=== PATIENT | female | born 1995 | race Caucasian/White ===

== ENCOUNTER 2016-11-01 22:21 | Emergency (ER) | payer MEDICAID ==
[2016-11-01 22:29] VITALS: BP 121/79
[2016-11-01] MEDS ORDERED: Ondansetron 4 MG/2 ML SDV IVPUSH ONE (22:54)
[2016-11-01] MEDS ORDERED: Sodium Chloride 0.9% 500 ML IV ONE (22:54)
[2016-11-01] MEDS ORDERED: Sodium Chloride 0.9% 10 ML Syringe FLUSH PRN (22:54)
--- NOTE | 2016-11-01 23:04 | EDM.PDOC ---
ED HPI GENERAL MEDICAL PROBLEM - General Chief Complaint: Abdominal Pain Stated Complaint: right side pain Time Seen by Provider: 11/01/16 22:43 Source of Information: Reports: Patient, Family, RN Notes Reviewed (Mother) - History of Present Illness INITIAL COMMENTS - FREE TEXT/NARRATIVE: 21-year-old female comes in with right-sided abdominal pain. This first started about 6 days ago. Pain has been primarily right upper quadrant but also right mid abdomen with some radiation toward the right flank. She felt that she was constipated initially She has worked with various meds for that. Did have an episode of diarrhea this past morning which she attributes to meds taken for constipation. There's been no repetitive watery diarrhea throughout the remainder of today. She has not had nausea or vomiting with this. She states she did eat pizza this last evening and that did make the pain worse. Pain does not over to the left abdomen. No fever or chills. No voiding symptomatology. She is taken to hydrocodone this evening about 1 and 3 hours ago so that is help the pain bringing that down from fairly severe to more mild at this time Right Abdomen Pain Score (Numeric/FACES): 3 - Related Data Allergies Allergy/AdvReac Type Severity Reaction Status Date / Time No Known Allergies Allergy Verified 09/08/15 13:03 Home Meds: Home Meds Levothyroxine 25 mcg PO DAILY 01/13/14 [History] Citalopram Hydrobromide [Celexa] 20 mg PO DAILY 11/01/16 [History] Past Medical History [employer] History: Reports: Psychiatric History: Reports: Anxiety, Depression Endocrine/Metabolic History: Reports: Hypothyroidism - Past Surgical History HEENT Surgical History: Reports: Oral Surgery Social & Family History - Tobacco Use Smoking Status *Q: Current Every Day Smoker Years of Tobacco use: 4 Packs/Tins Daily: 0.5 Used Tobacco, but Quit: No - Caffeine Use Caffeine Use: Reports: Energy Drinks, Soda - Recreational Drug Use Recreational Drug Use: No Drug Use in Last 12 Months: Yes Recreational Drug Type: Reports: Methamphetamine (Last use in summer) Recreational Drug Last Use: wednesday ED ROS GENERAL - Review of Systems Review Of Systems: See Below Constitutional: Denies: Fever, Chills, Diaphoresis HEENT: Reports: No Symptoms Respiratory: Denies: Shortness of Breath, Pleuritic Chest Pain Cardiovascular: Denies: Chest Pain GI/Abdominal: Reports: Abdominal Pain, Constipation, Diarrhea. Denies: Nausea, Vomiting : Reports: No Symptoms Musculoskeletal: Reports: Other (Area pain and swelling left antecubital area of forearm, swelling was worse but area of swelling and redness persists). Denies: Back Pain Skin: Reports: No Symptoms Neurological: Reports: No Symptoms ED EXAM, GI/ABD - Physical Exam Exam: See Below General Appearance: Alert, No Apparent Distress Throat/Mouth: Normal Inspection, Normal Oropharynx Head: No: Facial Swelling Neck: Supple, Full Range of Motion Respiratory/Chest: No Respiratory Distress, Lungs Clear, Normal Breath Sounds Cardiovascular: Regular Rate, Rhythm GI/Abdominal Exam: Tender (Right upper abdomen, more tender right mid abdomen and slightly toward the right flank, mild tenderness right lower abdomen, left abdomen completely soft and nontender). No: Guarding, Rebound (Female) Exam: Normal External Exam, Adnexal Tenderness (Right greater than left), Vaginal Discharge (Small amount of grayish white) Back Exam: CVA Tenderness (R) Extremities: Redness (Small area of redness, moderate area of tenderness with palpable swelling left antecubital area of left forearm) Neurological: Alert, Oriented, No Motor/Sensory Deficits ED I&D PROCEDURES - I&D Site: antecubital L forearm Skin prep: Providone-Iodine (Betadine) Local anesthesia - Lidocaine (Xylocaine): 1% Plain Area Incised With: 11 Blade Drainage: Purulent, Large Amount Packed With: 1/2 in. Iodoform Sterile Dressinx4(s) Complications: No Course - Vital Signs Last Recorded V/S: Last Vital Signs Temp 96.7 F 11/01/16 22:28 Pulse 92 11/01/16 22:28 Resp 20 11/01/16 22:28 BP 121/79 11/01/16 22:28 Pulse Ox 99 11/01/16 22:28 - Orders/Labs/Meds Labs: Laboratory Tests 11/01/16 11/01/16 11/01/16 Range/Units 23:19 23:19 23:19 WBC 10.11 H (3.98-10.04) K/mm3 RBC 4.40 (3.98-5.22) M/mm3 Hgb 13.0 (11.2-15.7) gm/L Hct 38.7 (34.1-44.9) % MCV 88.0 (79.4-94.8) fl MCH 29.5 (25.6-32.2) pg MCHC 33.6 (32.2-35.5) g/dl RDW Std Deviation 40.6 (36.4-46.3) fL Plt Count 316 (182-369) K/mm3 MPV 10.3 (9.4-12.3) fl Neut % (Auto) 81.2 H (34.0-71.1) % Lymph % (Auto) 8.7 L (19.3-51.7) % [place] % (Auto) 8.3 (4.7-12.5) % Eos % (Auto) 1.3 (0.7-5.8) Baso % (Auto) 0.2 (0.1-1.2) % Neut # (Auto) 8.21 H (1.56-6.13) K/mm3 Lymph # (Auto) 0.88 L (1.18-3.74) K/mm3 [place] # (Auto) 0.84 H (0.24-0.36) K/mm3 Eos # (Auto) 0.13 (0.04-0.36) K/mm3 Baso # (Auto) 0.02 (0.01-0.08) K/mm3 Manual Slide Review Normal smear Sodium 136 (136-145) mEq/L Potassium 3.6 (3.5-5.1) mEq/L Chloride 99 (98-107) mEq/L Carbon Dioxide 29 (21-32) mEq/L Anion Gap 11.6 (5-15) BUN 5 L (7-18) mg/dL Creatinine 0.8 (0.55-1.02) mg/dL Est Cr Clr Drug Dosing 124.33 mL/min Estimated GFR (MDRD) > 60 (>60) mL/min BUN/Creatinine Ratio 6.3 L (14-18) Glucose 110 H (74-106) mg/dL Calcium 8.9 (8.5-10.1) mg/dL Total Bilirubin 0.4 (0.2-1.0) mg/dL AST 21 (15-37) U/L ALT 52 (14-59) U/L Alkaline Phosphatase 112 (46-116) U/L C-Reactive Protein 20.5 H* (<1.0) mg/dL Total Protein 7.1 (6.4-8.2) g/dl Albumin 2.8 L (3.4-5.0) g/dl Globulin 4.3 gm/dL Albumin/Globulin Ratio 0.7 L (1-2) HCG, Qual (NEGATIVE) C trachomatis DNA (PCR) N gonorrhoeae DNA (PCR) 11/01/16 11/02/16 Range/Units 23:19 02:30 WBC (3.98-10.04) K/mm3 RBC (3.98-5.22) M/mm3 Hgb (11.2-15.7) gm/L Hct (34.1-44.9) % MCV (79.4-94.8) fl MCH (25.6-32.2) pg MCHC (32.2-35.5) g/dl RDW Std Deviation (36.4-46.3) fL Plt Count (182-369) K/mm3 MPV (9.4-12.3) fl Neut % (Auto) (34.0-71.1) % Lymph % (Auto) (19.3-51.7) % [place] % (Auto) (4.7-12.5) % Eos % (Auto) (0.7-5.8) Baso % (Auto) (0.1-1.2) % Neut # (Auto) (1.56-6.13) K/mm3 Lymph # (Auto) (1.18-3.74) K/mm3 [place] # (Auto) (0.24-0.36) K/mm3 Eos # (Auto) (0.04-0.36) K/mm3 Baso # (Auto) (0.01-0.08) K/mm3 Manual Slide Review Sodium (136-145) mEq/L Potassium (3.5-5.1) mEq/L Chloride (98-107) mEq/L Carbon Dioxide (21-32) mEq/L Anion Gap (5-15) BUN (7-18) mg/dL Creatinine (0.55-1.02) mg/dL Est Cr Clr Drug Dosing mL/min Estimated GFR (MDRD) (>60) mL/min BUN/Creatinine Ratio (14-18) Glucose (74-106) mg/dL Calcium (8.5-10.1) mg/dL Total Bilirubin (0.2-1.0) mg/dL AST (15-37) U/L ALT (14-59) U/L Alkaline Phosphatase (46-116) U/L C-Reactive Protein (<1.0) mg/dL Total Protein (6.4-8.2) g/dl Albumin (3.4-5.0) g/dl Globulin gm/dL Albumin/Globulin Ratio (1-2) HCG, Qual Negative (NEGATIVE) C trachomatis DNA (PCR) Detected H N gonorrhoeae DNA (PCR) Not detected Meds: Medications Discontinued Medications Generic Name Dose Route Start Last Admin Trade Name Freq PRN Reason Stop Dose Admin Ceftriaxone Sodium 250 mg 11/02/16 02:35 11/02/16 02:54 Rocephin IM 11/02/16 02:36 Not Given ONETIME ONE Diatrizoate Meglum/Diatrizoate Sod 90 ml 11/02/16 01:26 11/02/16 01:44 Gastrografin 37% PO 11/02/16 01:27 90 ml ONETIME ONE Administration Doxycycline Hyclate 100 mg 11/02/16 02:35 11/02/16 02:53 Vibramycin PO 11/02/16 02:36 100 mg ONETIME ONE Administration Hydromorphone HCl 0.5 mg 11/01/16 23:28 11/01/16 23:40 Dilaudid IVPUSH 11/01/16 23:29 0.5 mg ONETIME ONE Administration Hydromorphone HCl 0.5 mg 11/02/16 02:44 11/02/16 02:51 Dilaudid IVPUSH 11/02/16 02:45 0.5 mg ONETIME ONE Administration Sodium Chloride 500 mls @ 999 mls/hr 11/01/16 22:54 11/01/16 23:20 Normal Saline IV 11/01/16 23:24 999 mls/hr .BOLUS ONE Administration Ceftriaxone Sodium 0.25 gm/ 50 mls @ 100 mls/hr 11/02/16 02:43 11/02/16 03:00 Sodium Chloride IV 11/02/16 03:12 100 mls/hr ONETIME ONE Administration Iopamidol 125 ml 11/02/16 01:26 11/02/16 01:44 Isovue-300 (61%) IVPUSH 11/02/16 01:27 125 ml ONETIME ONE Administration Ketorolac Tromethamine 30 mg 11/01/16 23:30 11/01/16 23:42 Toradol IVPUSH 30 mg ONETIME SONY Administration Lidocaine HCl 50 ml 11/02/16 00:19 11/02/16 01:00 Xylocaine 1% INJECT 11/02/16 00:20 50 ml ONETIME ONE Administration Ondansetron HCl 4 mg 11/01/16 22:54 11/01/16 23:21 Zofran IVPUSH 11/01/16 22:55 4 mg ONETIME ONE Administration Sodium Chloride 10 ml 11/01/16 22:54 11/01/16 23:20 Saline Flush FLUSH 10 ml ASDIRECTED PRN Administration Keep Vein Open Sodium Chloride 10 ml 11/02/16 01:26 11/02/16 01:44 Saline Flush FLUSH 10 ml ONETIME PRN Administration IV FLUSH - Re-Assessments/Exams Free Text/Narrative Re-Assessment/Exam: 11/02/16 02:35. CT report comes back with no evidence for acute appendicitis. However there is stranding in the fatty tissue of the pelvis was some free fluid as well suggestive for PID, possible developing tubo-ovarian abscess. Patient denies being aware of pelvic discharge but there is some grayish white discharge visible on pelvic exam. Swab was taken for chlamydia/GC screen. She did have some tenderness of the right adnexa with question slight fullness as well. She has been given Rocephin 250 mg IV and also started on doxycycline 100 mg twice a day for 10 days. Discharge instructions as documented. Departure - Departure Time of Disposition: 02:44 Disposition: Home, Self-Care 01 Condition: Fair Clinical Impression: PID (acute pelvic inflammatory disease), Abscess - Discharge Information Instructions: Pelvic Inflammatory Disease, [id number] Referrals: PCP,None [Primary Care Provider] - Forms: ED Department Discharge Additional Instructions: Doxycycline 100 mg twice daily for 10 days, take until gone. Be careful to avoid excess sunlight when taking the doxycycline as that can cause photosensitivity reaction if exposed to a lot of sunlight. Follow-up clinic tomorrow to have packing removed and changed left forearm. Call [phone] for appointment. Tylenol for mild to moderate discomfort or hydrocodone if needed for more severe pain. Do not take Tylenol and hydrocodone at the same time. Do not drive or work when taking hydrocodone. Zofran if needed for nausea or vomiting. Return to ED if symptoms worsening in any way.
[2016-11-01] MEDS ORDERED: HYDROmorphone 0.5 MG/0.5 ML Syringe IVPUSH ONE (23:28)
[2016-11-01] MEDS ORDERED: Ketorolac 30 MG/ML SDV IVPUSH SCH (23:30)
[2016-11-02] MEDS ORDERED: Lidocaine 1% 50 ML MDV INJECT ONE (00:19)
[2016-11-02] MEDS ORDERED: Diatrizoate Meglumine/Diatrizoate Sodium 37% 120 ML Bottle PO ONE (01:26)
[2016-11-02] MEDS ORDERED: Iopamidol 612 MG/ML 150 ML Bottle IVPUSH ONE (01:26)
[2016-11-02] MEDS ORDERED: Sodium Chloride 0.9% 10 ML Syringe FLUSH PRN (01:26)
[2016-11-02] MEDS ORDERED: Doxycycline 100 MG Cap PO ONE (02:35)
[2016-11-02] MEDS ORDERED: cefTRIAXone 250 MG Vial IM ONE (02:35)
[2016-11-02] MEDS ORDERED: CEFTRIAXONE IV ONE (02:43)
[2016-11-02] MEDS ORDERED: SODIUM CHLORIDE 0.9% IV ONE (02:43)
[2016-11-02] MEDS ORDERED: HYDROmorphone 0.5 MG/0.5 ML Syringe IVPUSH ONE (02:44)
[2016-11-02 04:55] LABS: C. TRACHOMATIS BY PCR DETECTED; N. GONORRHOEAE BY PCR NOT DETECTED
--- NOTE | 2016-11-02 10:28 | CT ---
CT abdomen and pelvis Technique: Multiple axial sections were obtained from above the dome of the diaphragm inferiorly through the pubic symphysis. Intravenous and oral contrast was utilized. Delayed images were obtained through the pelvis. Comparison: No previous abdominal or pelvic imaging. Findings: Inflammatory change is seen within the pelvis. Cystic areas are seen within the pelvis. These findings are suspicious for an inflammatory process with abscess most likely representing tubo-ovarian abscess and pelvic inflammatory disease. Visualized lung bases are clear. Liver shows no focal parenchymal abnormality. Spleen appears within normal limits. Adrenal glands show no nodule. Pancreas is within normal limits. Gallbladder shows no calcified gallstones. Kidneys show symmetric contrast enhancement without hydronephrosis or mass. Aorta shows no aneurysmal dilatation. No retroperitoneal adenopathy or mesenteric abnormalities are seen. No additional pelvic abnormality is noted. Appendix is seen which appears within normal limits. Delayed images show contrast within the distal ureters and within the bladder. Impression: 1. Findings as described above suspicious for pelvic inflammatory change and tubo-ovarian abscess. 2. No additional abnormality is identified on CT study of the abdomen and pelvis. Diagnostic code #5 Agree with preliminary report issued by [employer] ([employer] preliminary report dictated on 11/02/16, 3:07 AM Central Time)
== END 2016-11-02 03:17 | disposition home or self-care (01) ==
LOC: JD.ED 22:21
DX: N73.0 Acute parametritis and pelvic cellulitis (principal); L02.414 Cutaneous abscess of left upper limb; F41.9 Anxiety disorder, unspecified; F32.9 Major depressive disorder, single episode, unspecified; E03.9 Hypothyroidism, unspecified; F17.210 Nicotine dependence, cigarettes, uncomplicated; Z98.890 Other specified postprocedural states; Z79.899 Other long term (current) drug therapy
CPT/HCPCS: 10061; 36415; 74177; 80053; 84703; 85025; 86140; 87491; 87591; 96361; 96374; 96375; 96376; 99284; A9270; J0696; J1170; J1885; J2405; J7040; J7050; Q9963; Q9967; 10060

== ENCOUNTER 2017-07-23 13:36 | Emergency (ER) | payer SELFPAY ==
[2017-07-23 13:57] VITALS: BP 106/86
--- NOTE | 2017-07-23 14:11 | EDM.PDOC ---
ED HPI GENERAL MEDICAL PROBLEM - General Chief Complaint: Upper Extremity Injury/Pain Stated Complaint: INFECTED RIGHT WRIST SENT FROM [facility] Time Seen by Provider: 07/23/17 14:11 Source of Information: Reports: Patient History Limitations: Reports: No Limitations - History of Present Illness INITIAL COMMENTS - FREE TEXT/NARRATIVE: Patient is a 22yo female presents ambulatory with a friend with concerns of infection to right wrist. This started on Wednesday of this week after a "relapse " and IV injection of meth into her right dorsal wrist. She is right handed so was attempting to do this with her left hand. She has pain with movements of the wrist but can move her fingers without pain. She has felt feverish and chilled today. No n/v/d, DUNCAN, back pain, CP, palpitations or abd pain. She has not attempted to inject since that time. She states the last relapse prior to this was 2 years ago. She may be interested in outpatient treatment. She has been to treatment before. Treatments SPRAGGER: Reports: Other (see below) Other Treatments SPRAGGER: [facility] Right Wrist Pain Score (Numeric/FACES): 5 - Related Data Allergies Allergy/AdvReac Type Severity Reaction Status Date / Time No Known Allergies Allergy Verified 07/23/17 13:47 Home Meds: Home Meds Levothyroxine 25 mcg PO DAILY 01/13/14 [History] Past Medical History [employer] History: Reports: Psychiatric History: Reports: Anxiety, Depression Endocrine/Metabolic History: Reports: Hypothyroidism - Past Surgical History HEENT Surgical History: Reports: Oral Surgery Social & Family History - Tobacco Use Smoking Status *Q: Current Every Day Smoker Years of Tobacco use: 4 Packs/Tins Daily: 0.5 Used Tobacco, but Quit: No - Caffeine Use Caffeine Use: Reports: Soda - Recreational Drug Use Recreational Drug Use: Yes Drug Use in Last 12 Months: Yes Recreational Drug Type: Reports: Methamphetamine Recreational Drug Last Use: wednesday Review of Systems - Review of Systems Review Of Systems: See Below Constitutional: Reports: Chills, Fever. Denies: Diaphoresis Eyes: Reports: No Symptoms Ears: Reports: No Symptoms Nose: Reports: No Symptoms Mouth/Throat: Reports: No Symptoms Respiratory: Reports: No Symptoms, Other (smokes 1/2 PPD). Denies: Shortness of Breath, Cough Cardiovascular: Reports: No Symptoms. Denies: Chest Pain, Irregular Heart Rate , Lightheadedness GI/Abdominal: Reports: No Symptoms Genitourinary: Reports: No Symptoms Musculoskeletal: Reports: Hand Pain (right ; see HPI) Skin: Reports: Erythema (dorsum of right hand/wrist), Other (2.5cm of raised erythema) Psychiatric: Reports: No Symptoms. Denies: Cravings (denies cravings now or in the past few days), Suicidal Ideation ED EXAM, GENERAL - Physical Exam Exam: See Below Exam Limited By: No Limitations General Appearance: Alert, WD/WN, No Apparent Distress Eye Exam: Bilateral Eye: EOMI, PERRL Ears: Normal External Exam, Hearing Grossly Normal Nose: Normal Inspection Throat/Mouth: Normal Inspection, Normal Lips, Normal Voice, No Airway Compromise Head: Atraumatic, Normocephalic Neck: Normal Inspection, Supple Respiratory/Chest: No Respiratory Distress, Lungs Clear, Normal Breath Sounds Cardiovascular: Normal Peripheral Pulses, Regular Rate, Rhythm, No Edema, No Murmur Peripheral Pulses: 2+: Radial (L), Radial (R) GI/Abdominal: Normal Bowel Sounds, Soft (Female) Exam: Deferred Rectal (Female) Exam: Deferred Extremities: Other (right hand: dorsal surface of hand/wrist is with 2.5cm area of induration/erythema, 3-4mm area that appears to have been opened but now sealed over in central part of abscess. No drainage noted. Palpation up forearm is normal and negative for pain. Any amt of wrist movement causes pain to dorsal hand. She can move all fingers without pain to fingers but states feels "tight". Dorsum of hand is moderately swollen, fingers are also with mild amt of swelling. Sensation is intatct to all fingers. ) Neurological: Alert, Oriented Psychiatric: Normal Affect, Normal Mood Skin Exam: Warm, Other (see above under extremities) ED TRAUMA EXTREMITY PROCEDURES - I&D Site: rt hand- dorsum Skin Prep: Chlorhexidine (Hibiciens) Local Anesthesia: Lidocaine: Other (LET) Area Incised With: 11 Blade Drainage: Purulent, Moderate Amount, Other (culture obtained) Probed to Break Up Loculations: Yes Packed With: None Sterile Dressinx4(s) Complications: No Course - Vital Signs Last Recorded V/S: Last Vital Signs Temp 98.9 F 07/23/17 13:48 Pulse 72 07/23/17 13:48 Resp 18 07/23/17 13:48 BP 106/86 07/23/17 13:48 Pulse Ox 98 07/23/17 13:48 - Orders/Labs/Meds Orders: Active Orders 24 hr Category Date Time Status CULTURE BLOOD [BC] Stat Lab 07/23/17 14:43 Received CULTURE BLOOD [BC] Stat Lab 07/23/17 15:12 Received HEPATITIS PANEL (4) [REF] Stat Lab 07/23/17 15:12 Received Sodium Chloride 0.9% [Saline Flush] Med 07/23/17 16:07 Active 10 ml FLUSH ONETIME PRN Blood Culture x2 Reflex Set [OM.PC] Stat Oth 07/23/17 14:23 Ordered Medication Orders Sodium Chloride (Saline Flush) 10 ml FLUSH ONETIME PRN PRN Reason: IV FLUSH Last Admin: 07/23/17 16:24 Dose: 10 ml Labs: Laboratory Tests 07/23/17 07/23/17 07/23/17 Range/Units 14:55 14:55 15:12 WBC 7.38 (3.98-10.04) K/mm3 RBC 4.86 (3.98-5.22) M/mm3 Hgb 14.5 (11.2-15.7) gm/L Hct 43.5 (34.1-44.9) % MCV 89.5 (79.4-94.8) fl MCH 29.8 (25.6-32.2) pg MCHC 33.3 (32.2-35.5) g/dl RDW Std Deviation 43.5 (36.4-46.3) fL Plt Count 265 (182-369) K/mm3 MPV 10.5 (9.4-12.3) fl Neut % (Auto) 68.0 (34.0-71.1) % Lymph % (Auto) 18.7 L (19.3-51.7) % [place] % (Auto) 9.2 (4.7-12.5) % Eos % (Auto) 3.0 (0.7-5.8) Baso % (Auto) 0.7 (0.1-1.2) % Neut # (Auto) 5.02 (1.56-6.13) K/mm3 Lymph # (Auto) 1.38 (1.18-3.74) K/mm3 [place] # (Auto) 0.68 H (0.24-0.36) K/mm3 Eos # (Auto) 0.22 (0.04-0.36) K/mm3 Baso # (Auto) 0.05 (0.01-0.08) K/mm3 Sodium 139 (136-145) mEq/L Potassium 3.4 L (3.5-5.1) mEq/L Chloride 105 (98-107) mEq/L Carbon Dioxide 24 (21-32) mEq/L Anion Gap 13.4 (5-15) BUN 9 (7-18) mg/dL Creatinine 0.6 (0.55-1.02) mg/dL Est Cr Clr Drug Dosing 164.38 mL/min Estimated GFR (MDRD) > 60 (>60) mL/min BUN/Creatinine Ratio 15.0 (14-18) Glucose 96 (74-106) mg/dL Calcium 8.8 (8.5-10.1) mg/dL Total Bilirubin 0.3 (0.2-1.0) mg/dL AST 33 (15-37) U/L ALT 68 H (14-59) U/L Alkaline Phosphatase 108 (46-116) U/L C-Reactive Protein 3.1 H* (<1.0) mg/dL Total Protein 7.1 (6.4-8.2) g/dl Albumin 3.4 (3.4-5.0) g/dl Globulin 3.7 gm/dL Albumin/Globulin Ratio 0.9 L (1-2) HCG, Qual Negative (NEGATIVE) HIV-1 Ab Rapid Screen Negative (NEGATIVE) Meds: Medications Generic Name Dose Route Start Last Admin Trade Name Freq PRN Reason Stop Dose Admin Sodium Chloride 10 ml 07/23/17 16:07 07/23/17 16:24 Saline Flush FLUSH 10 ml ONETIME PRN Administration IV FLUSH Discontinued Medications Generic Name Dose Route Start Last Admin Trade Name Freq PRN Reason Stop Dose Admin Vancomycin HCl 2.5 gm/ Sodium 500 mls @ 250 mls/hr 07/23/17 14:45 07/23/17 15 :22 Chloride IV 07/23/17 16:44 250 mls/hr ONETIME ONE Administration Iopamidol 100 ml 07/23/17 16:07 07/23/17 16:24 Isovue-300 (61%) IVPUSH 07/23/17 16:08 100 ml ONETIME ONE Administration Lidocaine/Tetracaine 1 ml 07/23/17 17:04 07/23/17 17:29 Let Soln TOP 07/23/17 17:05 1 ml ONETIME ONE Administration Vancomycin HCl 2.5 gm 07/23/17 14:25 07/23/17 15:22 Vancocin IV 07/23/17 15:24 Not Given ONETIME ONE - Re-Assessments/Exams Free Text/Narrative Re-Assessment/Exam: 07/23/17 14:36 Labs ordered, CT of hand/wrist to be obtained. Vanco dose clarified with pharmacy, will load with 2.5gm now in IV dose. Free Text/Narrative Re-Assessment/Exam: 07/23/17 16:16 HCG negative- will proceed with CT of hand. Free Text/Narrative Re-Assessment/Exam: 07/23/17 17:05 CT of hand reviewed with Dr. Gonsalez; appears to be superficial abscess. Will prepare for I&D, LET ordered for anesthesia. Labs reviewed. Essentially unremarkable. CRP slightly elevated at 3.1. HIV and HCG both negative. 07/23/17 17:06 07/23/17 18:20 I&D completed- patient tolerated well. Will Rx clindamycin 300mg QID x 10 days and tramadol #10 from [facility] Follow up early next week with Primary Care- stressed importance of follow up. Recommend Outpatient tx with [facility]- information to be given on [facility]. Departure - Departure Time of Disposition: 18:21 Disposition: Home, Self-Care 01 Condition: Good Clinical Impression: Cellulitis and abscess of hand, Drug abuse - Discharge Information Instructions: Skin Abscess, Cellulitis, Adult Referrals: PCP,None [Primary Care Provider] - Forms: ED Department Discharge Additional Instructions: Warm epsom salt soaks 2-3 times per day x 48 hours then stop. Cover wound at all times except while soaking or showering. Return to ED or Clinic if worsening symptoms of redness, red streaks, return of abscess, swelling of hand/fingers, increased pain, fevers, chills or sweats. Tylenol or motrin if needed for pain; tramadol can also be used 2-3 times per day in addition to tylenol or motrin for pain. Antibiotic- clindamycin 4 times per day with food for 10 days. Recommend take probiotic once daily to protect normal GI bacteria/radha. Follow up with Primary Care early next week--this is imperative. - My Orders Last 24 Hours: My Active Orders 07/23/17 14:23 Blood Culture x2 Reflex Set [OM.PC] Stat 07/23/17 14:43 CULTURE BLOOD [BC] Stat 07/23/17 15:12 CULTURE BLOOD [BC] Stat HEPATITIS PANEL (4) [REF] Stat 07/23/17 16:07 Sodium Chloride 0.9% [Saline Flush] 10 ml FLUSH ONETIME PRN - Assessment/Plan Last 24 Hours: My Active Orders 07/23/17 14:23 Blood Culture x2 Reflex Set [OM.PC] Stat 07/23/17 14:43 CULTURE BLOOD [BC] Stat 07/23/17 15:12 CULTURE BLOOD [BC] Stat HEPATITIS PANEL (4) [REF] Stat 07/23/17 16:07 Sodium Chloride 0.9% [Saline Flush] 10 ml FLUSH ONETIME PRN
[2017-07-23] MEDS ORDERED: Vancomycin 1 GM AdvVial IV ONE (14:25)
[2017-07-23] MEDS ORDERED: Vancomycin 2.5 GM in Sodium Chloride 0.9% 500 ML IV ONE (14:45)
[2017-07-23] MEDS ORDERED: Sodium Chloride 0.9% 10 ML Syringe FLUSH PRN (16:07)
[2017-07-23] MEDS ORDERED: Iopamidol 612 MG/ML 100 ML Bottle IVPUSH ONE (16:07)
[2017-07-23] MEDS ORDERED: Lidocaine/EPINEPHrine/Tetracaine Soln 1 ML TOP ONE (17:04)
--- NOTE | 2017-07-23 17:43 | CT ---
CT hand Technique: Multiple axial sections through the hand were obtained. Reconstructed coronal and sagittal images were obtained. Intravenous contrast was not utilized. Comparison: No prior study. Findings: Abscess containing air is seen within the posterior hand. This measures about 3.4 cm x 1.5 cm. Diffuse inflammatory change is also seen within the dorsum of the hand compatible with diffuse cellulitis. No cortical erosions are seen to indicate osteomyelitis at this time. No acute fracture is seen. Impression: 1. Findings compatible with 3.4 x 1.5 cm abscess containing air within the posterior hand. Diffuse cellulitis is seen within the dorsum of the hand. 2. No findings of osteomyelitis are seen. Diagnostic code #5
== END 2017-07-23 18:28 | disposition home or self-care (01) ==
LOC: JD.ED 13:36
DX: L03.113 Cellulitis of right upper limb (principal); L02.511 Cutaneous abscess of right hand; F19.10 Other psychoactive substance abuse, uncomplicated; E03.9 Hypothyroidism, unspecified; F17.210 Nicotine dependence, cigarettes, uncomplicated; Z79.899 Other long term (current) drug therapy
CPT/HCPCS: 10060; 73201; 80053; 80074; 84703; 85025; 86140; 87040; 87070; 87077; 87186; 96365; 96366; 99284; A9270; G0433; J3370; J7040; J7050; Q9967; 36415; 99283-25

== ENCOUNTER 2018-05-06 19:02 | Emergency (ER) | payer SELFPAY ==
[2018-05-06 19:23] VITALS: BP 138/88
--- NOTE | 2018-05-06 19:27 | EDM.PDOC ---
ED HPI GENERAL MEDICAL PROBLEM - General Chief Complaint: ENT Problem Stated Complaint: TOOTH PAIN Time Seen by Provider: 05/06/18 19:15 Source of Information: Reports: Patient, Family History Limitations: Reports: No Limitations - History of Present Illness INITIAL COMMENTS - FREE TEXT/NARRATIVE: The patient presents with dental pain. There are 3 teeth that have been bothering her for weeks and now the pain is worse. She has a premolar in the right lower jaw that is fractured and has pain and a molar to the left upper and lower jaw that is hurting. She denies any fever or chills. She does not have a dentist but her mom is here and she will take her to her dentist Dr Guzman next week. Onset: Gradual Duration: Week(s): Location: Reports: Other (Dental pain) Quality: Reports: Sharp Severity: Severe Improves with: Reports: None Worsens with: Reports: None Associated Symptoms: Reports: No Other Symptoms Tooth/Teeth Pain Score (Numeric/FACES): 8 - Related Data Allergies Allergy/AdvReac Type Severity Reaction Status Date / Time No Known Allergies Allergy Verified 07/23/17 13:47 Home Meds: Home Meds Levothyroxine 25 mcg PO DAILY 01/13/14 [History] Hydrocodone/Acetaminophen [Hydrocodon-Acetaminophen 5-325] 1 - 2 each PO Q6HR PRN #20 tablet 05/06/18 [Rx] Ondansetron [Zofran ODT] 4 mg PO Q6H PRN #20 tab.dis 05/06/18 [Rx] Penicillin V Potassium 500 mg PO Q6HR #40 tab 05/06/18 [Rx] 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: Psychiatric History: Reports: Anxiety, Depression Endocrine/Metabolic History: Reports: Hypothyroidism - Past Surgical History HEENT Surgical History: Reports: Oral Surgery, Other (See Below) Other HEENT Surgeries/Procedures: dental caries Social & Family History - Tobacco Use Smoking Status *Q: Current Every Day Smoker Years of Tobacco use: 5 Packs/Tins Daily: 0.5 - Caffeine Use Caffeine Use: Reports: Soda ED ROS ENT - Review of Systems Review Of Systems: See Below Constitutional: Reports: No Symptoms HEENT: Reports: Dental Pain Respiratory: Reports: No Symptoms Cardiovascular: Reports: No Symptoms Endocrine: Reports: No Symptoms GI/Abdominal: Reports: No Symptoms : Reports: No Symptoms Musculoskeletal: Reports: No Symptoms ED EXAM, ENT - Physical Exam Exam: See Below Exam Limited By: No Limitations General Appearance: Alert, No Apparent Distress Ears: Normal External Exam Nose: Normal Inspection Mouth/Throat: Dental Pain, Other (Right lower jaw premolar is fractured and has pain upon palpation. The left upper and lower jaw line has a 1st molar that has pain upon palpation but no edema or cavity is seen.) Head: Atraumatic, Normocephalic Neck: Normal Inspection Departure - Departure Time of Disposition: 19:25 Disposition: Home, Self-Care 01 Condition: Good Clinical Impression: Dental abscess, Dental caries, Pain, dental Fracture of tooth Qualifiers: Encounter type: initial encounter Fracture type: closed Qualified Code(s): S02.5XXA - Fracture of tooth (traumatic), initial encounter for closed fracture - Discharge Information *PRESCRIPTION DRUG MONITORING PROGRAM REVIEWED*: No *COPY OF PRESCRIPTION DRUG MONITORING REPORT IN PATIENT ANTHONY: No Prescriptions: Hydrocodone/Acetaminophen [Hydrocodon-Acetaminophen 5-325] 1 - 2 each PO Q6HR PRN #20 tablet PRN Reason: Pain Penicillin V Potassium 500 mg PO Q6HR #40 tab Ondansetron [Zofran ODT] 4 mg PO Q6H PRN #20 tab.dis PRN Reason: Nausea\vomiting Referrals: PCP,None [Primary Care Provider] - Additional Instructions: Take the medication as prescribed. Follow up with Dr Guzman within a week or two. Please return if you are worse.
== END 2018-05-06 19:30 | disposition home or self-care (01) ==
LOC: JD.ED 19:02
DX: K04.7 Periapical abscess without sinus (principal); K03.81 Cracked tooth; Z79.899 Other long term (current) drug therapy; F17.210 Nicotine dependence, cigarettes, uncomplicated
CPT/HCPCS: 99282; 99283

== ENCOUNTER 2018-06-26 20:58 | Emergency (ER) | payer SELFPAY ==
[2018-06-26 21:18] VITALS: BP 144/96
--- NOTE | 2018-06-26 23:00 | EDM.PDOC ---
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 Medication(s) Right Tooth/Teeth Pain Score (Numeric/FACES): 9 - Related Data Allergies Allergy/AdvReac Type Severity Reaction Status Date / Time No Known Allergies Allergy Verified 06/26/18 21:18 Home Meds: Home Meds Levothyroxine 25 mcg PO DAILY 01/13/14 [History] Hydrocodone/Acetaminophen [Hydrocodon-Acetaminophen 5-325] 1 - 2 each PO Q6HR PRN #20 tablet 05/06/18 [Rx] Ondansetron [Zofran ODT] 4 mg PO Q6H PRN #20 tab.dis 05/06/18 [Rx] Penicillin V Potassium 500 mg PO Q6HR #40 tab 05/06/18 [Rx] Past Medical History - Past Health History Medical/Surgical History: Denies 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 ED EXAM, ENT - Physical Exam Exam: See Below Text/Narrative:: dictated Course - Vital Signs Last Recorded V/S: Last Vital Signs Temp 36.5 C 06/26/18 21:14 Pulse 108 H 06/26/18 21:14 Resp 19 06/26/18 21:14 BP 144/96 H 06/26/18 21:14 Pulse Ox 98 06/26/18 21:14 - Orders/Labs/Meds Meds: Medications Discontinued Medications Generic Name Dose Route Start Last Admin Trade Name Freq PRN Reason Stop Dose Admin Tramadol HCl 100 mg 06/26/18 23:19 06/26/18 23:26 Ultram PO 06/26/18 23:20 100 mg ONETIME ONE Administration Departure - Departure Time of Disposition: 20:51 Disposition: Home, Self-Care 01 Clinical Impression: Dental abscess - Discharge Information Instructions: Dental Abscess Referrals: PCP,None [Primary Care Provider] - Forms: ED Department Discharge Additional Instructions: Take medications as prescribed. Finish full prescription of antibiotic unless told otherwise by doctor or dentist. Follow up with dentist, come back to ED if symptoms worsen or change.
[2018-06-26] MEDS ORDERED: traMADol 50 MG Tab PO ONE (23:19)
--- NOTE | 2018-06-27 03:06 | ER ---
REASON FOR EMERGENCY ROOM VISIT: Toothache. HISTORY OF PRESENT ILLNESS: This patient has had multiple visits to the emergency department for various dental related problems including a broken tooth, dental caries, dental abscesses, and so forth. Recently, she states she has seen her dentist in [place], who put her on penicillin, and she was given something else for pain, although she states lately she has only been taking ibuprofen. Since yesterday, she has stopped taking her penicillin, and she only has 2 tablets left. She became frustrated. She states because they did not seem to be helping much, the toothache has persisted. She does not have a followup visit with her dentist at this point in time. She has not had any fever or chills. She has had pain and swelling, puffiness in her right cheek, which she attributes to her toothache. PAST MEDICAL HISTORY: Significant for: 1. History of UTI. 2. History of drug abuse. 3. Depression. 4. History of . 5. History of abdominal pain and diarrhea. 6. Acute pelvic inflammatory disease. 7. Cellulitis and abscess of hand. 8. Multiple visits for various dental problems as outlined above. CURRENT MEDICATIONS: Her medications include penicillin 500 mg p.o. q.6 hours, Zofran 4 mg p.o. ODT q.6 hours p.r.n., levothyroxine 25 mcg p.o. daily, and most recently she has taken hydrocodone with acetaminophen. ALLERGIES: None to medications. REVIEW OF SYSTEMS: Pertinent positives and negatives as listed in the HPI. PHYSICAL EXAMINATION: GENERAL: She is somewhat tearful from the discomfort and she is frustrated. VITAL SIGNS: She is afebrile, her pulse rate is 108, blood pressure 144/96, respiratory rate 19, O2 sats 98%. HEENT: Head is normocephalic. She does have some puffiness about the right buccal region and some induration over the gingiva corresponding to the right mandibular first molar. She has some tenderness that can be palpated beneath the level of the dental gingival margin laterally. There is no cervical adenopathy. No crepitus is noted. She does have obvious dental caries corresponding to an area where she obviously chipped her 1st mandibular molar on the right side. IMPRESSION: Probably periodontal abscess. PLAN: I refilled her penicillin prescription, and we gave here 2 tablets of tramadol 50 mg 1 p.o. q.4-6 hours p.r.n. for pain. I also gave her prescription for tramadol 50 mg, dispensed #8, 1 q.4 hours p.r.n. pain, and another 20 tablets of penicillin VK 500 mg 1 q.6 hours. I emphasized to her very emphatically that she really needs to see a dentist to get this taken care of and covering up with continued courses of antibiotics, and pain medications is not going to be the best solution. She became tearful at this primarily because she is frustrated, and I can certainly understand that. She tells me that she will call her dentist office tomorrow and arrange an appointment to be seen. All questions were answered. She agrees with this plan. DWAINE /[phone]
== END 2018-06-26 23:35 | disposition home or self-care (01) ==
LOC: JD.ED 20:58
DX: K04.7 Periapical abscess without sinus (principal); F17.210 Nicotine dependence, cigarettes, uncomplicated; E03.9 Hypothyroidism, unspecified; Z79.899 Other long term (current) drug therapy
CPT/HCPCS: 99282; A9270; 99283

== ENCOUNTER 2018-09-08 21:47 | Emergency (ER) | payer SELFPAY ==
[2018-09-08 22:30] VITALS: BP 137/89
[2018-09-08] MEDS ORDERED: Ketorolac 30 MG/ML SDV IM ONE (23:21)
[2018-09-08] MEDS ORDERED: Amoxicillin/Clavulanate K 875-125 MG Tab PO ONE (23:28)
--- NOTE | 2018-09-08 23:33 | EDM.PDOC ---
ED HPI GENERAL MEDICAL PROBLEM - General Chief Complaint: ENT Problem Stated Complaint: DENTAL COMLAINT Time Seen by Provider: 09/08/18 23:22 Source of Information: Reports: Patient History Limitations: Reports: No Limitations - History of Present Illness INITIAL COMMENTS - FREE TEXT/NARRATIVE: Patient is a 23-year-old male who presents to the ED for evaluation of a dental complaint. She states that this started yesterday. She notes the pain to be sharp and shooting in nature that comes and goes in waves. She states this is in the left upper back part of her jaw it by her molars. She notes there is some pain with chewing, but did not have any sore throat or difficulty swallowing. She notes that she does have a dentist appointment within the next week. She denies any headache or fevers and chills. She states that she has been taking Aleve and ibuprofen for pain relief and this has not been providing much relief for her. 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 Denies: Throat Pain, Throat Swelling Respiratory: Reports: No Symptoms Cardiovascular: Reports: No Symptoms Endocrine: Reports: No Symptoms GI/Abdominal: Reports: No Symptoms : Reports: No Symptoms Musculoskeletal: Reports: No Symptoms Skin: Reports: No Symptoms Neurological: Reports: No Symptoms Psychiatric: Reports: No Symptoms Hematologic/Lymphatic: Reports: No Symptoms Immunologic: Reports: No Symptoms ED EXAM, ENT - Physical Exam Exam: See Below Exam Limited By: No Limitations General Appearance: Alert, WD/WN, No Apparent Distress Mouth/Throat: Normal Inspection, Normal Gums, Normal Lips, Normal Oropharynx, Normal Teeth, Dental Tenderness (Left upper molar, unsure if there is an impacted wisdom tooth vs dental sheila on last molar of left side.). No: Drooling , Pharyngeal Erythema, Tonsillar Exudates, Tonsillar Swelling, Trismus Head: Atraumatic, Normocephalic Neck: Normal Inspection, Supple, Non-Tender, Full Range of Motion Respiratory/Chest: No Respiratory Distress, Lungs Clear, Normal Breath Sounds, No Accessory Muscle Use, Chest Non-Tender Cardiovascular: Normal Peripheral Pulses, Regular Rate, Rhythm, No Murmur Neurological: Alert, Oriented, Normal Cognition, No Motor/Sensory Deficits Psychiatric: Normal Affect, Normal Mood Skin: Warm, Dry, Intact, Normal Color, No Rash Course - Vital Signs Last Recorded V/S: Last Vital Signs Temp 97.9 F 09/08/18 22:28 Pulse 76 09/08/18 22:28 Resp 16 09/08/18 22:28 BP 137/89 09/08/18 22:28 Pulse Ox 98 09/08/18 22:28 - Orders/Labs/Meds Orders: Active Orders 24 hr Category Date Time Status Amoxicillin/Clavulanate K [Augmentin 875 MG/125 MG] Med 09/08/18 23:28 Once 1 tab PO ONETIME ONE Meds: Medications Discontinued Medications Generic Name Dose Route Start Last Admin Trade Name Juliano PRN Reason Stop Dose Admin Ketorolac Tromethamine 30 mg 09/08/18 23:21 09/08/18 23:25 Toradol IM 09/08/18 23:22 30 mg ONETIME ONE Administration - Re-Assessments/Exams Free Text/Narrative Re-Assessment/Exam: 09/08/18 23:31 Patient presents to the ED for evaluation of a dental complaint. I have ordered 30 mg IM Toradol, and one tablet of Augmentin to be given at tonight's visit. With a prescription for Augmentin sent to the [email or web address]. Patient will need to take Aleve and ibuprofen as needed for further pain relief until the antibiotics can take in. The patient complained of some mild stomach upset due to taking ibuprofen and Aleve. I did recommend that she start omeprazole to guard against any GI upset. She is understanding of this. Departure - Departure Time of Disposition: 23:32 Disposition: Home, Self-Care 01 Condition: Fair Clinical Impression: Pain, dental - Discharge Information *PRESCRIPTION DRUG MONITORING PROGRAM REVIEWED*: No *COPY OF PRESCRIPTION DRUG MONITORING REPORT IN PATIENT ANTHONY: No Instructions: Diet and Dental Disease Referrals: PCP,None [Primary Care Provider] - Additional Instructions: You have been evaluated in the ED for your dental pain. You have been provided with a script for Augmentin. This was electronically sent to the [facility] located [email or web address]. Please take this medication as directed. (1 tab twice daily for 7 days or until gone). Aleve provides good pain relief for dental pain. Please take 1-2 tabs twice daily as needed for pain. You may take 600mg Ibuprofen q6hrs for further pain relief. Do not exceed 3200mg Ibuprofen in a 24 hr time span. You may use hot pack/ ice packs to the affected area as tolerated in 15-20 minute intervals. Please keep your appointment with your dental provider for next week so that they can provide definitive management of your dental pain. Please return to the ED if your symptoms change or worsen. - My Orders Last 24 Hours: My Active Orders 09/08/18 23:28 Amoxicillin/Clavulanate K [Augmentin 875 MG/125 MG] 1 tab PO ONETIME ONE - Assessment/Plan Last 24 Hours: My Active Orders 09/08/18 23:28 Amoxicillin/Clavulanate K [Augmentin 875 MG/125 MG] 1 tab PO ONETIME ONE
== END 2018-09-08 23:54 | disposition home or self-care (01) ==
LOC: JD.ED 21:47
DX: K08.89 Other specified disorders of teeth and supporting structures (principal); F17.210 Nicotine dependence, cigarettes, uncomplicated
CPT/HCPCS: 96372; 99282; A9270; J1885; 99283

== ENCOUNTER 2022-06-07 18:22 | Emergency (ER) | payer MEDICAID ==
[2022-06-07] MEDS ORDERED: Acetaminophen/HYDROcodone 325-5 MG Tab PO ONE (18:51)
[2022-06-07 20:40] VITALS: BP 137/84; PULSE 85
== END 2022-06-07 20:40 | disposition home or self-care (01) ==
LOC: JD.ED 18:22
DX: S89.91XA Unspecified injury of right lower leg, initial encounter (principal); Z72.0 Tobacco use; W00.0XXA Fall on same level due to ice and snow, initial encounter
CPT/HCPCS: 73562; 99283; A9270

== ENCOUNTER 2024-05-07 22:04 | Emergency (ER) | payer MEDICAID ==
[2024-05-07] MEDS: guaiFENesin 600 MG Tab.ER PO ONE (22:24)
[2024-05-07 23:17] VITALS: BP 144/99; PULSE 80
== END 2024-05-07 23:19 | disposition home or self-care (01) ==
LOC: JD.ED 22:04
DX: J40 Bronchitis, not specified as acute or chronic (principal); F17.210 Nicotine dependence, cigarettes, uncomplicated; Z79.899 Other long term (current) drug therapy
CPT/HCPCS: 87428; 99284; A9270